=== PATIENT | female | born 1940 | race Caucasian/White ===

== ENCOUNTER 2018-03-24 17:08 | Observation (INO) | payer OTHER ==
[~2018-03-24] VITALS: Ht 162.6 cm; Wt 66.1 kg
[2018-03-24 17:52] LABS: BASOPHIL (%) 0.5 % (0-1); EOSINOPHIL (%) 0.5 % (0-5); HEMATOCRIT 37.8 % (36.0-46.0); HEMOGLOBIN 12.5 G/DL (11.9-15.5); IMMATURE GRANULOCYTE (%) 0.4 % (0.0-0.7); LYMPHOCYTE (%) 10.7 % (15-42); LYMPHOCYTE COUNT 0.8 K/uL (1.0-2.8); MCH 28.2 PG (29.0-34.0); MCHC 33.1 G/DL (30.0-36.0); MCV 85.3 FL (83-99); MONOCYTE (%) 2.7 % (3-12); MONOCYTE COUNT 0.2 K/uL (0-0.8); NEUTROPHIL (%) 85.2 % (45-76); NEUTROPHIL COUNT 6.2 K/uL (1.8-6.4); PLATELET COUNT 263 K/uL (156-360); RBC DIS.WIDTH-CV 15.7 % (11.8-14.6); RED BLOOD COUNT 4.43 M/uL (3.80-5.20); WHITE BLOOD COUNT 7.3 K/uL (4.1-10.2)
[2018-03-24 18:01] LABS: PTT 29.6 SEC (25-37)
[2018-03-24 18:06] LABS: ALBUMIN 4.5 g/dL (3.2-4.8); CHLORIDE 101 mEq/L (99-109); POTASSIUM 3.8 mEq/L (3.7-5.4); SODIUM 135 mEq/L (136-147)
[2018-03-24 18:08] LABS: GLUCOSE 124 mg/dL (70-99)
[2018-03-24 18:09] LABS: TOTAL PROTEIN 7.2 g/dL (6.4-8.3)
[2018-03-24 18:10] LABS: TOTAL BILIRUBIN 1.1 mg/dL (0.0-1.0)
[2018-03-24 18:12] LABS: ALKALINE PHOSPHATASE 121 IU/L (3-129); GFR ESTIMATE (CALCULATED) 57 mL/min/
[2018-03-24 18:13] LABS: UREA NITROGEN (BUN) 14 mg/dL (9-23)
[2018-03-24 18:14] LABS: AST (GOT) 25 IU/L (2-34)
[2018-03-24 18:15] LABS: ALT (GPT) 23 IU/L (3-49); LIPASE 16 U/L (1.0-51.0); TROP-I INTERPRETATION NEGATIVE; TROPONIN-I < 0.01 ng/mL (0.0-0.30)
[2018-03-24] MEDS ORDERED: WELLBUTRIN XL300 MG PO (20:28)
[2018-03-24] MEDS ORDERED: ONE DAILY1 EAC3 PO (20:28)
[2018-03-24] MEDS ORDERED: PREVACID30 MG PO (20:28)
[2018-03-24] MEDS ORDERED: VITAMIN D31000 UNI2 PO (20:29)
[2018-03-24] MEDS ORDERED: OSTEO BI-FLEX1 EAC3 PO (20:29)
[2018-03-24] MEDS ORDERED: TYLENOL ARTHRI650 MG PO (20:30)
[2018-03-24] MEDS ORDERED: CLARITIN,ALAVAR10 MG PO (20:31)
[2018-03-24] MEDS ORDERED: MOTRIN400 MG PO (20:31)
[2018-03-24 23:43] LABS: TROP-I INTERPRETATION NEGATIVE; TROPONIN-I < 0.01 ng/mL (0.0-0.30)
[2018-03-25 00:50] VITALS: BP 186/93
[2018-03-25 04:00] VITALS: BP 134/72
[2018-03-25 04:42] LABS: HDL CHOLESTEROL 79 MG/DL (Desirable>=50); LDL CHOLESTEROL 141 mg/dL (Desirable<100); NON-HDL CHOLESTEROL 154 mg/dL (Desirable<160); TOTAL CHOLESTEROL 233 mg/dL (Desirable<200); TRIGLYCERIDES 63 MG/DL (Normal: <150)
[2018-03-25 04:46] LABS: APPEARANCE CLEAR ((CLEAR)); BILIRUBIN NEGATIVE; BLOOD NEGATIVE; COLOR COLORLESS ((YELLOW)); GLUCOSE (STRIP) NEGATIVE; KETONES NEGATIVE; LEUKOCYTES NEGATIVE; NITRITE NEGATIVE; PROTEIN (STRIP) NEGATIVE; UCUL ADDED? NO; UROBILINOGEN 0.2 MG/DL (0.2-1.0)
[2018-03-25 05:26] LABS: HEMATOCRIT 36.6 % (36.0-46.0); HEMOGLOBIN 11.8 G/DL (11.9-15.5); MCH 27.9 PG (29.0-34.0); MCHC 32.2 G/DL (30.0-36.0); MCV 86.5 FL (83-99); PLATELET COUNT 262 K/uL (156-360); RBC DIS.WIDTH-CV 16.1 % (11.8-14.6); RBC DIS.WIDTH-SD 50.6 % (39-53); RED BLOOD COUNT 4.23 M/uL (3.80-5.20); WHITE BLOOD COUNT 7.7 K/uL (4.1-10.2)
[2018-03-25 05:44] LABS: TROP-I INTERPRETATION NEGATIVE; TROPONIN-I < 0.01 ng/mL (0.0-0.30)
[2018-03-25 06:15] LABS: CHLORIDE 106 MEQ/L (99-109); GFR ESTIMATE (CALCULATED) 57 mL/min/; GLUCOSE 100 mg/dL (70-99); POTASSIUM 4.3 MEQ/L (3.7-5.4); SODIUM 140 MEQ/L (136-147); UREA NITROGEN (BUN) 12 mg/dL (9-23)
[2018-03-25 07:50] VITALS: BP 133/85
[2018-03-25 11:00] LABS: TROP-I INTERPRETATION NEGATIVE; TROPONIN-I < 0.01 ng/mL (0.0-0.30)
[2018-03-25] MEDS ORDERED: LOPRESSOR25 MG PO (11:04)
[2018-03-25] MEDS ORDERED: NIFEDIPINE ER30 MG PO (11:04)
[2018-03-25] MEDS ORDERED: ASPIR-LOW81 MG PO (11:04)
[2018-03-25] MEDS ORDERED: PRAVASTATIN SOD40 MG PO (11:05)
[2018-03-25 11:48] VITALS: BP 138/76
== END 2018-03-25 14:01 | disposition home or self-care (01) ==
LOC: EME 17:08 → 4EAST 23:02 → EDOF 23:02 → ENRESERV 23:05 → ENPENDDIS 03-25 → 4EAST 03-25 00:38
PROVIDERS: Emergency Medicine; Hospitalist
DX: I16.9 Hypertensive crisis, unspecified (principal); I67.4 Hypertensive encephalopathy; R07.9 Chest pain, unspecified; E87.2 Acidosis; I10 Essential (primary) hypertension; E03.9 Hypothyroidism, unspecified; K21.9 Gastro-esophageal reflux disease without esophagitis; K44.9 Diaphragmatic hernia without obstruction or gangrene; E78.5 Hyperlipidemia, unspecified; I70.0 Atherosclerosis of aorta; I65.23 Occlusion and stenosis of bilateral carotid arteries; M19.90 Unspecified osteoarthritis, unspecified site; Z91.81 History of falling; Z79.1 Long term (current) use of non-steroidal anti-inflammatories (NSAID); Z82.49 Family history of ischemic heart disease and other diseases of the circulatory system; Z87.891 Personal history of nicotine dependence; F32.9 Major depressive disorder, single episode, unspecified; I51.7 Cardiomegaly; D64.9 Anemia, unspecified; Z90.49 Acquired absence of other specified parts of digestive tract; Z88.0 Allergy status to penicillin
CPT/HCPCS: 70496; 70498; 71045; 71275; 73521; 74174; 80048; 80053; 80061; 81003; 82948; 83036; 83605; 83690; 84484; 85025; 85027; 85610; 85730; 93005; 93306; 99281; 99283; C9113; G0378; J1200; J1644; J2405; J7030; J7040; S0028